=== PATIENT | male | born 1980 | race Caucasian/White ===

== ENCOUNTER 2018-07-09 07:49 | Day surgery (SDC) | payer OTHER ==
[~2018-07-09 07:49] MED LIST: CEFAZOLIN SODIUM 2 GM in DEXTROSE 5%-WATER 100 ML IV PRN
[2018-07-09] MEDS ORDERED: CEFAZOLIN 2 GM/D5W RTU 2 GM/50 ML RTUPB IV ONE (08:24)
[2018-07-09] MEDS ORDERED: MIDAZOLAM 2 MG/2 ML INJ ONE (09:52)
[2018-07-09] MEDS ORDERED: FENTANYL CITRATE INJ/PF 100 MCG/2 ML AMPUL ONE (09:52)
[2018-07-09] MEDS ORDERED: HYDROMORPHONE HCL INJ/PF 2 MG/ML AMPULE ONE (09:53)
[2018-07-09] MEDS ORDERED: PROPOFOL INJ 200 MG/20 ML VIAL IV ONE (09:53)
[2018-07-09] MEDS ORDERED: ONDANSETRON HCL INJ/PF 4 MG/2 ML SDV ONE ×2 (09:53→14:06)
[2018-07-09] MEDS ORDERED: ACETAMINOPHEN 1,000 MG/100 ML RTUPB IV ONE (09:53)
[2018-07-09] MEDS ORDERED: BUPIVACAINE HCL 0.5 % INJ/PF 30 ML SDV ONE (10:00)
[2018-07-09] MEDS ORDERED: FENTANYL CITRATE INJ/PF 100 MCG/2 ML AMPUL IV PRN ×3 (10:56)
[2018-07-09] MEDS ORDERED: MORPHINE SULFATE 10 MG/ML INJ IV PRN (10:56)
[2018-07-09] MEDS ORDERED: PROMETHAZINE HCL INJ 25 MG/1 ML VIAL IV PRN ×2 (10:56)
[2018-07-09] MEDS ORDERED: MEPERIDINE HCL/PF INJ 25 MG/1 ML DISP.SYRIN IV PRN (10:56)
[2018-07-09] MEDS ORDERED: DIPHENHYDRAMINE HCL 50 MG/ML VIAL IV PRN (10:56)
[2018-07-09] MEDS ORDERED: OXYCODONE-ACETAMINOPHEN 5-325 MG TABLET PO PRN ×3 (10:56→12:06)
[2018-07-09] MEDS ORDERED: ONDANSETRON HCL INJ/PF 4 MG/2 ML SDV IV PRN (12:07)
[2018-07-09] MEDS ORDERED: OXYCODONE-ACETAMINOPHEN 5-325 MG TABLET ONE (12:09)
[2018-07-09] MEDS ORDERED: ONDANSETRON 4 MG TAB.RAPDIS ONE (13:24)
--- NOTE | 2018-07-09 14:17 | OPERATIVE REPORT E ---
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 OPERATION: 1. Left small finger extensor tenolysis. 2. Left small finger PIP capsulectomy. SURGEON: BHASKAR MCKEON M.D. ANESTHESIA: General. ESTIMATED BLOOD LOSS: Minimal. COMPLICATIONS: None. INDICATIONS: The patient is a 38-year-old [employer] who had previously sustained a fracture of the proximal phalanx of his left small finger. He was treated with Kalyn wire percutaneous fixation and casting. 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 DESCRIPTION OF PROCEDURE: Following the induction of a general anesthetic and administration of antibiotics, the patient was positioned supine on the operating room table. All bony prominences were padded. A tourniquet was placed proximally on the left arm but not inflated. The left upper extremity was sterilely prepped with ChloraPrep and draped in standard fashion. The arm was exsanguinated with a Mann bandage and the tourniquet inflated to 250 mmHg. A mid lateral incision was performed on the ulnar aspect of the digit, extended dorsally, proximally, and distally. The skin was incised and flaps were raised. Care was taken to identify and protect the digital artery and nerve. The extensor tendon was found to have an abundance of scar tissue both with the dorsal skin and the underlying bone of the proximal phalanx. Tenolysis on both surfaces was performed, allowing complete mobility of the extensor tendon. There was very little improvement in motion following the extensor tenolysis alone. The extensor tendon was then elevated over the joint and the insertion of the central slip was protected. The transverse retinacular ligament was transected on both sides of the digit, allowing visualization of the joint. Capsulectomy was performed. The capsule was incised with a 15 blade and then excised with a small rongeur. Motion was again checked and it was improved but not complete in flexion. It was, therefore, decided to incise the dorsal 20% of the collateral ligaments on both sides of the digit. They were incised and then excised. Following this recession of the collateral ligaments there was full digital flexion of the digit. Extension also improved to approximately a 15-degree flexion contracture. The wound was then copiously irrigated. The skin was reapproximated with 3-0 monofilament nylon suture, 0.25% Marcaine was injected as digital block for postoperative analgesia, and a bulky sterile dressing was applied. The patient tolerated the procedure well without complications and was brought to the recovery room in stable condition postoperatively. He will begin range of motion of the digit immediately. He will remove the dressing in 5 days to allow complete mobility of the digit, and he will start formal occupational therapy next week. DICTATING PHYSICIAN: BHASKAR MCKEON M.D. [id number] [facility]#: [id number] ID: [id number] JOB#: [id number] ACCT: [id number] cc:BHASKAR MCKEON M.D. >
[2018-07-09] MEDS ORDERED: DEXAMETHASONE SOD PHOS INJ 10 MG/1 ML VIAL ONE (14:50)
[2018-07-09] MEDS ORDERED: PROMETHAZINE HCL INJ 25 MG/1 ML VIAL ONE ×2 (14:50→14:52)
[2018-07-09 16:31] VITALS: BP 126/78
== END 2018-07-09 16:00 | disposition home or self-care (01) ==
LOC: OROUT 07:49
PROVIDERS: ATTEND Orthopaedic Surgery
DX: M24.542 Contracture, left hand (principal); S62.617S Displaced fracture of proximal phalanx of left little finger, sequela; X58.XXXS Exposure to other specified factors, sequela; Y93.67 Activity, basketball
CPT/HCPCS: 26445; 26525; J2250; J3490; S0119; J3010; J1170; J2550; J2405; J2704; J1100; J0690; J0131; 1810